=== PATIENT | male | born 1970 | race Asian ===

== ENCOUNTER 2018-03-20 01:51 | Inpatient (IN) | payer MEDICAID ==
[2018-03-20] VITALS (7 sets, daily range): BP systolic 104–140; BP diastolic 70–95; Ht 165.1 cm; Wt 77.1 kg
[~2018-03-20] VITALS: Ht 165.1 cm; Wt 77.1 kg
[2018-03-20] MEDS ORDERED: PROSUD INH (05:37)
[2018-03-20 06:30] LABS: MAGNESIUM 2.9 mg/dL (1.8-2.4); PHOSPHOROUS 2.7 mg/dL (2.5-4.9)
[2018-03-20 06:53] LABS: CHOLESTEROL/HDL RATIO 2.6
[2018-03-20 13:59] LABS: CALCIUM 8.9 mg/dL (8.5-10.1); CARBON DIOXIDE 24.7 mmol/L (21-32); CHLORIDE SERUM 103 mmol/L (98-107); CREATININE SERUM 1.2 mg/dL (0.7-1.3); GFR1 > 60 mL/min; GLUCOSE SERUM 189 mg/dL (74-106); POTASSIUM SERUM 3.7 mmol/L (3.5-5.1); SODIUM SERUM 138 mmol/L (136-145)
[2018-03-20 14:12] LABS: BASOPHIL % 0.2 % (0-2); PLATELET COUNT 239 x10^3mcL (130-400); RED CELL DISTRIBUTION WIDTH 13.1 % (11.5-14.5)
[2018-03-20 17:16] LABS: microscopic required? NO
[2018-03-20 17:21] LABS: urine erythrocyte NEGATIVE (NEGATIVE)
[2018-03-20 17:31] LABS: AMPHETAMINE QUAL UR POSITIVE (See below)
[2018-03-21 05:42] VITALS: BP 119/89
[2018-03-21 06:24] LABS: CALCIUM 8.8 mg/dL (8.5-10.1); CARBON DIOXIDE 26.2 mmol/L (21-32); CHLORIDE SERUM 106 mmol/L (98-107); GFR1 > 60 mL/min; GLUCOSE SERUM 140 mg/dL (74-106); MAGNESIUM 2.4 mg/dL (1.8-2.4); POTASSIUM SERUM 3.7 mmol/L (3.5-5.1); SODIUM SERUM 138 mmol/L (136-145)
[2018-03-21 07:47] LABS: BASOPHIL % 0.2 % (0-2); PLATELET COUNT 240 x10^3mcL (130-400); RED CELL DISTRIBUTION WIDTH 13.6 % (11.5-14.5)
[2018-03-21 09:27] VITALS: BP 131/93
[2018-03-21] MEDS ORDERED: MEDDP PO (09:57)
[2018-03-21] MEDS ORDERED: QVAR REDIHALE10.6 G1 IH (09:59)
[2018-03-21] MEDS ORDERED: PROVENTIL0.09 MG/A1 INH (10:01)
[2018-03-21 11:51] VITALS: BP 131/93
== END 2018-03-21 13:00 | disposition home or self-care (01) | DRG 141 ==
LOC: ED 01:51 → DU 05:32
PROVIDERS: Internal Medicine; ADMIT Family Medicine
DX: J45.901 Unspecified asthma with (acute) exacerbation (principal); E83.41 Hypermagnesemia; F41.9 Anxiety disorder, unspecified; R06.03 Acute respiratory distress; T38.0X5A Adverse effect of glucocorticoids and synthetic analogues, initial encounter; D72.829 Elevated white blood cell count, unspecified; Z68.28 Body mass index [BMI] 28.0-28.9, adult
CPT/HCPCS: 83880; 87804; 90658; J1885; J1956; J2920; J2930; J3475; J7030; J7512; J7613; J7620; J7626; Q0092

== ENCOUNTER 2018-04-18 14:20 | Inpatient (IN) | payer MEDICAID ==
[~2018-04-18] VITALS: Ht 167.6 cm; Wt 74.0 kg
[~2018-04-18 14:20] MED LIST: MEDDP PO; PROSUD INH; PROVENTIL0.09 MG/A1 INH; QVAR REDIHALE10.6 G1 IH
[2018-04-18 14:28] VITALS: Ht 167.6 cm; Wt 74.0 kg
[2018-04-18 16:08] LABS: BASOPHIL % 0.5 % (0-2); PLATELET COUNT 246 x10^3mcL (130-400); RED CELL DISTRIBUTION WIDTH 13.2 % (11.5-14.5)
[2018-04-18 16:09] LABS: CALCIUM 8.3 mg/dL (8.5-10.1); CARBON DIOXIDE 30.5 mmol/L (21-32); CHLORIDE SERUM 105 mmol/L (98-107); CREATININE SERUM 0.8 mg/dL (0.7-1.3); GFR1 > 60 mL/min; GLUCOSE SERUM 113 mg/dL (74-106); POTASSIUM SERUM 3.1 mmol/L (3.5-5.1); SODIUM SERUM 143 mmol/L (136-145)
[2018-04-18 16:14] LABS: ALBUMIN 3.6 g/dL (3.4-5.0); ALKALINE PHOSPHATASE 78 U/L (46-116); ALT/SGPT 30 U/L (16-63); AST/SGOT 38 U/L (15-37); BILIRUBIN TOTAL 0.56 mg/dL (0.20-1.00); TOTAL PROTEIN, SERUM 6.9 g/dL (6.4-8.2)
[2018-04-18 16:35] LABS: microscopic required? NO
[2018-04-18 16:43] LABS: MAGNESIUM 2.2 mg/dL (1.8-2.4); PHOSPHOROUS 3.5 mg/dL (2.5-4.9)
[2018-04-18 16:44] LABS: CHOLESTEROL/HDL RATIO 2.2
[2018-04-18 16:54] LABS: T3 TOTAL 1.11 ng/mL
[2018-04-18 16:57] LABS: FREE T4 0.92 ng/dL (0.76-1.46)
[2018-04-18 17:17] LABS: urine erythrocyte NEGATIVE (NEGATIVE)
[2018-04-18 17:32] VITALS: BP 138/87
[2018-04-18 17:46] VITALS: BP 138/87
[2018-04-18 22:01] VITALS: BP 141/88
[2018-04-19 06:07] VITALS: BP 138/93
[2018-04-19 06:35] LABS: BASOPHIL % 0.1 % (0-2); PLATELET COUNT 260 x10^3mcL (130-400); RED CELL DISTRIBUTION WIDTH 13.1 % (11.5-14.5)
[2018-04-19 07:06] LABS: CALCIUM 8.8 mg/dL (8.5-10.1); CHLORIDE SERUM 107 mmol/L (98-107); CREATININE SERUM 0.8 mg/dL (0.7-1.3); GFR1 > 60 mL/min; GLUCOSE SERUM 114 mg/dL (74-106); POTASSIUM SERUM 3.9 mmol/L (3.5-5.1); SODIUM SERUM 143 mmol/L (136-145)
[2018-04-19 09:40] VITALS: BP 117/64
[2018-04-19] MEDS ORDERED: OXYCODONE HYDRO30 MG PO (11:44)
[2018-04-19] MEDS ORDERED: ALPRAZOLAM1 MG PO (11:44)
[2018-04-19 12:50] VITALS: BP 99/47
[2018-04-19 16:20] VITALS: BP 103/68
[2018-04-19 21:45] VITALS: BP 96/58
[2018-04-20 06:44] VITALS: BP 98/53
[2018-04-20 07:31] LABS: CALCIUM 8.9 mg/dL (8.5-10.1); CARBON DIOXIDE 26.4 mmol/L (21-32); CREATININE SERUM 1.5 mg/dL (0.7-1.3); POTASSIUM SERUM 4.5 mmol/L (3.5-5.1)
[2018-04-20 07:42] LABS: PLATELET COUNT 269 x10^3mcL (130-400); RED CELL DISTRIBUTION WIDTH 12.9 % (11.5-14.5)
[2018-04-20 07:43] LABS: BASOPHIL % 0 % (0-2)
[2018-04-20 09:16] VITALS: BP 88/51
[2018-04-20 11:25] VITALS: BP 96/57
[2018-04-20 13:07] VITALS: BP 107/56
[2018-04-20 18:08] VITALS: BP 116/69
[2018-04-20 21:32] VITALS: BP 115/72
[2018-04-21 06:30] VITALS: BP 114/73
[2018-04-21 06:56] LABS: PLATELET COUNT 274 x10^3mcL (130-400); RED CELL DISTRIBUTION WIDTH 13.1 % (11.5-14.5)
[2018-04-21 07:07] LABS: BASOPHIL % 0 % (0-2)
[2018-04-21 07:35] LABS: CALCIUM 8.6 mg/dL (8.5-10.1); CARBON DIOXIDE 27.7 mmol/L (21-32); CHLORIDE SERUM 102 mmol/L (98-107); CREATININE SERUM 0.9 mg/dL (0.7-1.3); GFR1 > 60 mL/min; GLUCOSE SERUM 114 mg/dL (74-106); SODIUM SERUM 139 mmol/L (136-145)
[2018-04-21] MEDS ORDERED: LEVAQUIN750 MG PO (08:13)
[2018-04-21 09:14] VITALS: BP 114/72
[2018-04-21 12:04] VITALS: BP 109/71
[2018-04-21 12:25] VITALS: BP 114/72
== END 2018-04-21 14:10 | disposition home or self-care (01) | DRG 145 ==
LOC: ED 14:20 → DU 16:09
PROVIDERS: Emergency Medicine; ADMIT General Practice
DX: J20.9 Acute bronchitis, unspecified (principal); J45.21 Mild intermittent asthma with (acute) exacerbation; M41.9 Scoliosis, unspecified; E87.6 Hypokalemia; F41.1 Generalized anxiety disorder; Z68.28 Body mass index [BMI] 28.0-28.9, adult; Z91.14 Patient's other noncompliance with medication regimen; Z91.19 Patient's noncompliance with other medical treatment and regimen
CPT/HCPCS: 82962; 83880; 84439; 94150; J1644; J2060; J2920; J2930; J3475; J7030; J7512; J7613; J7620; J7626; J7644; Q0092

== ENCOUNTER 2018-05-13 08:11 | Inpatient (IN) | payer MEDICAID ==
[~2018-05-13] VITALS: Ht 167.6 cm; Wt 76.2 kg
[~2018-05-13 08:11] MED LIST changes: +LEVAQUIN750 MG PO; +OXYCODONE HYDRO30 MG PO
--- NOTE | 2018-05-13 08:14 | NUR ---
MSE COMPLETED BY DR AGOSTO
[2018-05-13 08:53] LABS: CALCIUM 8.2 mg/dL (8.5-10.1); CARBON DIOXIDE 34.1 mmol/L (21-32); CHLORIDE SERUM 106 mmol/L (98-107); GFR1 > 60 mL/min; GLUCOSE SERUM 111 mg/dL (74-106); SODIUM SERUM 147 mmol/L (136-145)
[2018-05-13 08:57] LABS: ALBUMIN 3.8 g/dL (3.4-5.0); ALKALINE PHOSPHATASE 104 U/L (46-116); ALT/SGPT 26 U/L (16-63); AST/SGOT 26 U/L (15-37); BILIRUBIN TOTAL 0.6 mg/dL (0.20-1.00); LIPASE 148 IU/L (73-393); TOTAL PROTEIN, SERUM 7.5 g/dL (6.4-8.2); TRIGLYCERIDES 49 mg/dL (<150)
[2018-05-13 08:58] LABS: HDL CHOLESTEROL 80 mg/dL (40-60)
[2018-05-13 09:05] LABS: T3 TOTAL 1.04 ng/mL
[2018-05-13 09:06] LABS: CHOLESTEROL 187 mg/dL (<200); CHOLESTEROL/HDL RATIO 2.3
[2018-05-13 09:12] LABS: FREE T4 0.75 ng/dL (0.76-1.46); FREE THYROXINE INDEX 2.3 ug/dL (1.4-4.5); T4(THYROXINE) 7.1 ug/dL (4.7-13.3)
[2018-05-13 09:20] LABS: BASOPHIL % 0.2 % (0-2); PLATELET COUNT 271 x10^3mcL (130-400); RED CELL DISTRIBUTION WIDTH 13.2 % (11.5-14.5)
--- NOTE | 2018-05-13 10:08 | NUR ---
PATIENT SLEEPING ON GURNEY- EASILY AROUSABLE. NO S/S OF ACUTE DISTRESS NOTED. ANTHONYRKLAUS, IN LOW POSITION, SIDE RAILS UP FOR SAFETY. WILL CONTINUE TO MONITOR.
--- NOTE | 2018-05-13 12:15 | NUR ---
PATIENT RESTING COMFORTABLY ON GURNEY. NO S/S OF IMMEDIATE DISTRESS. WILL CONTINUE TO MONITOR.
[2018-05-13 12:55] LABS: MAGNESIUM 2.3 mg/dL (1.8-2.4); PHOSPHOROUS 5.2 mg/dL (2.5-4.9)
[2018-05-13 13:08] LABS: microscopic required? NO
--- NOTE | 2018-05-13 13:12 | NUR ---
REPORT GIVEN TO HALEY ESPANA FOR CONTINUED CARE OF PATIENT.
[2018-05-13 13:29] VITALS: BP 121/76
--- NOTE | 2018-05-13 13:29 | NUR ---
RECEIVED PT FROM ED VIA GUERKLAUS, CAME IN DUE TO SOB. DROWSY BUT ORIENTED X4. DENIES HEADACHE/DIZZINESS. PUPILS ARE BRISK AND REACTIVE TO LIGHT. ABLE TO FOLLOW SIMPLE COMMANDS. NO SOB NOTED, CRACKLES AND WHEEZES NOTED ON AUSCULTATION. W/ NON-PRODUCTIVE COUGH. O2 SAT=97%, ON 2LPM/NC. DENIES CHEST PAIN/PRESSURE, SR W/ ST ELEVATION. DENIES ABDOMINAL DISCOMFORT. VOIDS. IV SITE ON THE LAC GAUGE 20 IS PATENT AND INTACT. SIDE RAILS UPX2. CALL LIGHT ON REACH. ENDORSED TO PRIMARY NURSE MALORIE AT BEDSIDE FOR CONTINUITY OF CARE
[2018-05-13 13:41] VITALS: BP 121/76
[2018-05-13 13:55] VITALS: Ht 167.6 cm; Wt 76.2 kg
[2018-05-13 14:11] LABS: UA SPECIFIC GRAVITY 1.015 (1.005-1.035); urine erythrocyte NEGATIVE (NEGATIVE)
--- NOTE | 2018-05-13 14:43 | NUR ---
PT RESTING IN BED WITH AUDIBLE WHEEZING NOTED. DENIES PAIN. ABLE TO TAKE DUE PO MEDICATION WITHOUT DIFFICULTY. O2 SAT 96% ON 2L NC. BREATHING EVEN AND LABORED. SAFETY MEASURES IN PLACE, CALL LIGHT WITHIN REACH.
--- NOTE | 2018-05-13 15:46 | NUR ---
PT WITH LABORED BREATHING AND AUDIBLE WHEEZING. RT AWARE, RT PUT PT BACK ON BIPAP AT THIS TIME.
--- NOTE | 2018-05-13 16:35 | NUR ---
PT SITTING ON SIDE OF BED WITH BIPAP ON ROCKING BACK AND FORTH, VERY RESTLESS WITH LABORED BREATHING. NEW ORDER FOR ATIVAN 1 MG IVP ADMINISTERED ORDERED X ONE DOSE.
[2018-05-13 17:04] VITALS: BP 142/78
--- NOTE | 2018-05-13 17:23 | NUR ---
PT RESTLESS IN BED, CANNOT SIT STILL. PT COMPLAINING OF BACK PAIN 09/27. TORADOL ADMINISTERED ORDERED PRN (SEE EMAR). RESPIRATORY THERAPY AT BEDSIDE WITH PT. PT OFF OF BIPAP AT THIS TIME. WILL MONITOR.
--- NOTE | 2018-05-13 17:51 | NUR ---
PT STATES PAIN IS "A LITTLE BETTER" AFTER ADMINISTRATION OF TORADOL. PAIN 6/10. PT VERY RESTLESS AND ANXIOUS AT THIS TIME, UNABLE TO STAY STILL. MONITORING AT BEDSIDE FOR SAFETY. PT ON NC 2L O2 SAT97%
--- NOTE | 2018-05-13 17:54 | NUR ---
1710- PT VERY AGITATED AND COMPLAINING OF BACK PAIN 8 OUT OF 10. TAKEN OFF BIPAP AND PLACED ON 3LPM MINA, RN AT BEDSIDE ADMINISTERING PAIN MED. SAT 94-95. PT WISHES TO REMAIN ON NC AT THIS TIME. BIPAP IN STAND BY MODE
--- NOTE | 2018-05-13 18:38 | NUR ---
PT WITH EXCESSIVE RESTLESSNESS AND ANXIEY. UNABLE TO LEAVE BEDSIDE FOR SAFETY CONCERNS. NORCO ADMINISTERED FOR PAIN BUT PER PATIENT PAIN NOW A 8/10. WILL CONTINUE TO MONITOR.
--- NOTE | 2018-05-13 19:23 | NUR ---
HALDOL IM ADMINISTERED ORDERED ONE TIME (SEE EMAR). WILL ENDORSE CARE TO STAFF ELECTRICAL ENGINEER
--- NOTE | 2018-05-13 20:04 | NUR ---
PT RECIEVED AWAKE ALWET AND ORIENTED,PT MOVES ALL OVER IN THE BED AND CAN NOT STAY STILL ON HIS BED,PT LOOK VERY ANXIOUS,PT WAS MOVED FROM ROOM 226A TO ROOM 218A VIA BED,PT ON OXYGEN 3L N/C SAT 97%,PT ON TELE MONITOR AND IN SINUS TACH NO CHEST PAIN REPORTED AT THIS TIME,BED IN THE LOW POSITION ANS LOCKED,CALL LIGHT MADE CLOSE TO THE PATIENT AND WILL CONTINUE TO MONITOR.
--- NOTE | 2018-05-13 21:09 | NUR ---
PT HAVING HIS RESPIRATORY TREAMENT AT THIS TIME,WILL CONTINUE TO MONITOR.
[2018-05-13 21:31] VITALS: BP 150/79
--- NOTE | 2018-05-13 21:51 | NUR ---
TALK TO DR RM ABOUT THE PATIENT CONDITION SAYS SHE IS AWARE OF THAT,PT STILL RESTLESS AND CAN NOT STAY STILL ON THE BED KEEPS MOVING ALL OVER THE BED,RENEE AT THE BEDSIDE AT THIS TIME,INITIATED THE LEVAQUIN 500 MG IVPB ORDER AND WILL CONTINUE TO MONITOR.
--- NOTE | 2018-05-13 22:12 | NUR ---
PT WAS SEEN BY DR RM PT RESTING AT THIS TIME,ANTONYE IN THE ROOM,ORDER TO GIVE HALDOL 5 MG IM HAS NOT GIVEN IT YET PATIENT WAS SLEEPING AT THIS TIME,WILL CONTINUE TO MONITOR.
--- NOTE | 2018-05-14 02:24 | NUR ---
PT HAD A RESTING NIGHT KEPT CLEAN AND DRY TO TOUCH AND WILL CONTINUE TO MONITOR.
[2018-05-14 05:51] VITALS: BP 135/82
--- NOTE | 2018-05-14 06:30 | NUR ---
PTY STILL SLEEPING KEPT CLEAN AND DRY TO TOUCH NO CHANGE AT THIS TIME,CALL LIGHT EASY REACHD AND WILL CONTINUE TO MONITOR.
--- NOTE | 2018-05-14 07:10 | NUR ---
RCD REPORT FROM HALEY RUEDA. RT AT BEDSIDE DOING ABGs. PATIENT APPEARS CALM. SALINE LOCK TO LAC, DRESSING SOILED. CALL LIGHT WITHIN REACH. WILL MONITOR.
[2018-05-14 07:21] LABS: CALCIUM 9.2 mg/dL (8.5-10.1); CARBON DIOXIDE 29.1 mmol/L (21-32); CHLORIDE SERUM 104 mmol/L (98-107); CREATININE SERUM 0.9 mg/dL (0.7-1.3); GFR1 > 60 mL/min; GLUCOSE SERUM 140 mg/dL (74-106); PHOSPHOROUS 3.6 mg/dL (2.5-4.9); POTASSIUM SERUM 4.5 mmol/L (3.5-5.1); SODIUM SERUM 142 mmol/L (136-145)
--- NOTE | 2018-05-14 07:25 | NUR ---
SHIFT ASSESSMENT PERFORMED AND DOCUMENTED. PATIENT HAS AUDIBLE WHEEZING BILATERALLY. RT TO RETURN FOR BREATHING TREATMENT. PATIENT DENIES NEEDS AT THIS TIME. APPEARS TENSE BUT COOPERATIVE. WILL MONITOR.
[2018-05-14 08:12] LABS: BASOPHIL % 0.1 % (0-2); PLATELET COUNT 262 x10^3mcL (130-400); RED CELL DISTRIBUTION WIDTH 13.4 % (11.5-14.5)
[2018-05-14 09:47] VITALS: BP 130/79
--- NOTE | 2018-05-14 12:21 | NUR ---
PATIENT GIVEN MEDICATIONS PER MAR. PATIENT DENIES PAIN AT THIS TIME. PATIENT WITH WHEEZING AUDIBLE. PATIENT REPORTS SOME SHORTNESS OF BREATH. CALLED RT AND THEY WILL COME EVALUATE HIM AT THIS TIME. O2 SAT 95% ON 2L NC. HR 103. RR 24.
--- NOTE | 2018-05-14 12:55 | NUR ---
FOUND PT IN ACUTE RESP DISTRESS. PLACED PT ON BIPAP ON THE FOLLOWING SETTINGS 12/6, 12, 30% ORDERED BY MD. RN MADE AWARE. INLINE BREATHING TX GIVEN WITHOUT INCIDENT. WILL CONT TO MONITOR
--- NOTE | 2018-05-14 12:57 | NUR ---
PER ZAKI, PATIENT PLACED ON BIPAP DUE TO DIFFICULTY BREATHING. 01/23, RATE 12, FIO2 30%.
[2018-05-14 13:30] VITALS: BP 120/80
--- NOTE | 2018-05-14 15:11 | NUR ---
PATIENT COMPLAINING OF 5/10 BACK PAIN. NORCO GIVEN PER APR. PATIENT WANTED TO EAT LUNCH SO REMOVED BIPAP AND PLACED ON STAND BY. PLACED ON 2L NC. CALLED RT ZAKI, TO INFORM. WILL MONITOR.
--- NOTE | 2018-05-14 15:20 | NUR ---
RN CALLED TO INFORM THAT SHE TOOK PT OFF BIPAP TO EAT LUNCH. WENT TO PT'S ROOM AND FOUND PT ON 2L NC, SPO2 OF 97%. NO RESP DISTRESS NOTED. WILL CONT TO MONITOR
--- NOTE | 2018-05-14 15:48 | NUR ---
PATIENT SHORT OF BREATH, AUDIBLY WHEEZING, PLACED BACK ON BIPAP. ZAKI RT INFORMED.
--- NOTE | 2018-05-14 15:52 | NUR ---
WAS INFORMED BY HALEY NAVA THAT PT REQUESTED TO BE PLACED ON BIPAP.
[2018-05-14 17:00] VITALS: BP 142/97
[2018-05-14 18:53] LABS: AMPHETAMINE QUAL UR NONE DETECTED (See below)
--- NOTE | 2018-05-14 19:09 | NUR ---
REPORT GIVEN TO HALEY BOLDEN. PATIENT SITTING UP EATING DINNER. REPORTS HIS BREATHING IS OKAY AT THIS TIME ON 2L NC. DISCUSSED WITH KIMI THAT PATIENT HAS BEEN ON BIPAP FOR SEVERAL HOURS TODAY. IV TO LAC PATENT. MICHAELANCE IS AT BEDSIDE AND APPEARS GROGGY, EYES DROOPING, POSSIBLY INTOXICATED. ADVISED CHARGE NURSE, SHERRI AND HALEY BOLDEN. BED LOW, CALL LIGHT WITHIN REACH. CARE ENDORSED.
--- NOTE | 2018-05-14 19:30 | NUR ---
RECEIVED PT FROM DAY SHIFT RN, PT AAOX4 DENIES ANY HEADACHE OR DIZZINESS. TELE 4 SR WITH ELEVATED T WAVE. PT DENIES CHEST PAIN OR PRESSURE. LUNG SOUNDS WHEEZING ON NC 2L/MIN TOLERATING WELL AT THIS TIME. NO SOB NOTED. RT PROTOCOL. IV LAC PATENT, SL. SAFETY PRECAUTIONS IN PLACE. CALL BUTTON WITHIN REACH. WILL CONTINUE TO MONITOR.
[2018-05-14 22:10] VITALS: BP 132/88
--- NOTE | 2018-05-14 22:26 | NUR ---
PT REPORTED HAVING BACK PAIN, REQUESTING FOR PAIN MEDICATION. MEDICATED PER EMAR, WILL CONTINUE TO MONITOR.
--- NOTE | 2018-05-14 23:38 | NUR ---
RT AT BEDSIDE.
--- NOTE | 2018-05-15 00:03 | NUR ---
IV LAC INFILTRATED, D/C CATH INTACT. NEW IV LEFT HAND 22G PATENT, GOOD BLOOD RETURN FLUSHED WELL.
--- NOTE | 2018-05-15 01:42 | NUR ---
PT RESTING IN BED, BREATHING EVEN AND UNLABORED WITH NO SIGNS OF DISTRESS NOTED, NC 2L/MIN. SAFETY PRECAUTIONS IN PLACE. WILL CONTINUE TO MONITOR.
[2018-05-15 05:36] VITALS: BP 91/53
[2018-05-15 06:20] LABS: PLATELET COUNT 271 x10^3mcL (130-400); RED CELL DISTRIBUTION WIDTH 13.1 % (11.5-14.5)
[2018-05-15 06:24] LABS: CALCIUM 8.5 mg/dL (8.5-10.1); CARBON DIOXIDE 27.5 mmol/L (21-32); CHLORIDE SERUM 103 mmol/L (98-107); CREATININE SERUM 1.2 mg/dL (0.7-1.3); GFR1 > 60 mL/min; GLUCOSE SERUM 152 mg/dL (74-106); POTASSIUM SERUM 4.5 mmol/L (3.5-5.1); SODIUM SERUM 138 mmol/L (136-145)
--- NOTE | 2018-05-15 06:58 | NUR ---
PT SLEPT ON AND OFF THROUGHOUT THE NIGHT WITH NO ACUTE DISTRESS NOTED. NC 2L/MIN O2SAT 95% WITH NO RESP DISTRESS NOTED. IV PATENT, SL. NO ACUTE DISTRESS NOTED. SAFETY PRECAUTIONS IN PLACE. CALL BUTTON WITHIN REACH. WILL CONTINUE TO MONITOR.
--- NOTE | 2018-05-15 07:44 | NUR ---
ENDORSED CARE TO DAY SHIFT RN, ALL QUESTIONS ADDRESSED.
[2018-05-15 08:22] LABS: BASOPHIL % 0 % (0-2)
--- NOTE | 2018-05-15 20:00 | NUR ---
RECEIVED PT FROM DAY SHIFT RN, PT AAOX4 DENIES ANY HEADACHE OR DIZZINESS. PT DENIES CHEST PAIN OR PRESSURE. PT ON NC 2L/MIN TOLERATING WELL AT THIS TIME. NO SOB NOTED. RT PROTOCOL. IV PATENT, SL. SAFETY PRECAUTIONS IN PLACE. CALL BUTTON WITHIN REACH. WILL CONTINUE TO MONITOR.
[2018-05-15 21:45] VITALS: BP 148/94
--- NOTE | 2018-05-16 00:23 | NUR ---
PT REPORTED HAVING BACK PAIN 8/10 MEDICATED PER EMAR. WILL CONTINUE TO MONITOR.
--- NOTE | 2018-05-16 01:26 | NUR ---
PT RESTING, NO SIGNS OF ACUTE DISTRESS NOTED. SAFETY PRECAUTIONS IN PLACE. WILL CONTINUE TO MONITOR.
--- NOTE | 2018-05-16 03:36 | NUR ---
PT REPORTED HE HAD AN EPISODE OF EMESIS SMALL AMOUNT, REFUSED ANTIMETIC MEDICATION, PT STATES HE IS OKAY. CALL BUTTON WITHIN REACH. WILL CONTINUE TO MONITOR.
--- NOTE | 2018-05-16 03:57 | NUR ---
PT REPORTED FEELING ANXIOUS, MEDICATED PER EMAR. WILL CONTINUE TO MONITOR.
--- NOTE | 2018-05-16 05:12 | NUR ---
PT SLEPT ON AND OFF THROUGHOUT THE NIGHT WITH NO SIGNS OF ACUTE DISTRESS. BREATHING EVEN AND UNLABORED, ON NC 2L/MIN NO SOB NOTED, TOLERATED WELL. IV LEFT HAND PATENT, SL. PT REPORTED BACK PAIN, MEDICATED PER EMAR WITH RELEIF. PT ALSO REPORTED VOMIT SMALL AMOUNT OF CLEAR LIQUID X2. PT REPORTED FEELING ANXIOUS, MEDICATED PER EMAR. CALL BUTTON WITHIN REACH. WILL CONTINUE TO MONITOR.
[2018-05-16 06:51] VITALS: BP 115/69
--- NOTE | 2018-05-16 07:15 | NUR ---
RECEIVED REPORT FROM [employer] OFFICER NURSE AT THIS TIME. PATIENT RESTING COMFORTABLY IN BED. NO APPARENT DISTRESS OR DISCOMFORT NOTED. BREATHING EVEN AND UNLABORED. 2L NC IN PLACE. PATIENT TOLERATING WELL. NO INDICATION OF CHEST PAIN AT THIS TIME. IV PATENT AND INTACT. ALL NEEDS ATTENDED TO. WILL CONTINUE TO MONITOR
--- NOTE | 2018-05-16 07:40 | NUR ---
PT RESTING, NO SIGNS OF ACUTE DISTRESS NOTED. SAFETY PRECAUTIONS IN PLACE. ENDORSED CARE TO DAY SHIFT RN, ALL QUESTIONS ADDRESSED.
[2018-05-16 07:51] LABS: CALCIUM 8.8 mg/dL (8.5-10.1); CARBON DIOXIDE 30.3 mmol/L (21-32); CHLORIDE SERUM 99 mmol/L (98-107); CREATININE SERUM 0.9 mg/dL (0.7-1.3); GFR1 > 60 mL/min; GLUCOSE SERUM 125 mg/dL (74-106); POTASSIUM SERUM 3.6 mmol/L (3.5-5.1); SODIUM SERUM 136 mmol/L (136-145)
[2018-05-16 08:12] LABS: BASOPHIL % 0.1 % (0-2); PLATELET COUNT 320 x10^3mcL (130-400); RED CELL DISTRIBUTION WIDTH 12.9 % (11.5-14.5)
[2018-05-16 09:45] VITALS: BP 128/79
--- NOTE | 2018-05-16 10:00 | NUR ---
ALL MORNING MEDICATIONS ADMINISTERED AT THIS TIME. PATIENT TOLERATED WELL. NO APPARENT DISTRESS OR DISCOMFORT NOTED. NO ADVERSE EFFECTS NOTED. ALL NEEDS ATTENDED TO. WILL CONTINUE TO MONITOR
[2018-05-16] MEDS ORDERED: SYMBICORT1 AE2 INH (10:38)
[2018-05-16] MEDS ORDERED: MEDDP PO (10:52)
[2018-05-16] MEDS ORDERED: ALPRAZOLAM1 MG PO (11:37)
[2018-05-16 11:54] VITALS: BP 128/79
--- NOTE | 2018-05-16 12:15 | NUR ---
PATIENT STABLE TO BE DISCHARGED TO HOME. DISCHARGE INSTRUCTIONS GIVEN WELL EDUCATION. INSTRUCTED PATIENT ABOUT FOLLOW UP APPOINTMENT. PATIENT VERBALIZES UNDERSTANDING. IV REMOVED WITH CATH INTACT. ID BANDS REMOVED. ALL BELONGINGS WITH PATIENT. ALL QUESTIONS AND CONCERNS ADDRESSED. ALL NEEDS ATTENDED TO. ESCORTED DOWN TO IVET ESTES BY RN AT THIS TIME
== END 2018-05-16 12:21 | disposition home or self-care (01) | DRG 140 ==
LOC: ED 08:11 → DU 11:24 → MU 11:24 → DU 13:30 → MU 05-15 11:20
PROVIDERS: General Practice; Specialist; ADMIT Internal Medicine
DX: J44.0 Chronic obstructive pulmonary disease with (acute) lower respiratory infection (principal); J96.21 Acute and chronic respiratory failure with hypoxia; N17.0 Acute kidney failure with tubular necrosis; J45.902 Unspecified asthma with status asthmaticus; E87.0 Hyperosmolality and hypernatremia; E83.39 Other disorders of phosphorus metabolism; M41.9 Scoliosis, unspecified; J20.9 Acute bronchitis, unspecified; J44.1 Chronic obstructive pulmonary disease with (acute) exacerbation; F41.1 Generalized anxiety disorder; R73.03 Prediabetes; E03.9 Hypothyroidism, unspecified; G89.29 Other chronic pain; M54.9 Dorsalgia, unspecified; Z82.49 Family history of ischemic heart disease and other diseases of the circulatory system; Z83.3 Family history of diabetes mellitus; Z68.27 Body mass index [BMI] 27.0-27.9, adult
CPT/HCPCS: 36600; 83880; 84439; 87804; J0171; J1630; J1644; J1885; J1956; J2060; J2920; J2930; J3490; J7030; J7050; J7613; J7620; J7626; J7644; Q0092